=== PATIENT | male | born 1995 | race Two or more races ===

== ENCOUNTER 2019-10-08 18:26 | Emergency (ER) | payer SELFPAY ==
[~2019-10-08] VITALS: Ht 177.8 cm; Wt 73.0 kg
[2019-10-08 18:36] VITALS: BP 118/82
== END 2019-10-08 19:15 | disposition left against medical advice (07) ==
LOC: ER 18:26
DX: Z53.21 Procedure and treatment not carried out due to patient leaving prior to being seen by health care provider (principal)

== ENCOUNTER 2019-10-10 16:28 | Emergency (ER) | payer SELFPAY ==
[~2019-10-10] VITALS: Ht 177.8 cm; Wt 67.0 kg
[2019-10-10 16:32] VITALS: BP 134/90
== END 2019-10-10 18:03 | disposition left against medical advice (07) ==
LOC: ER 16:28
DX: Z53.21 Procedure and treatment not carried out due to patient leaving prior to being seen by health care provider (principal)

== ENCOUNTER 2019-10-11 18:50 | Emergency (ER) | payer SELFPAY ==
[~2019-10-11] VITALS: Ht 165.1 cm; Wt 64.0 kg
[2019-10-11] MEDS ORDERED: ONDANSETRON HCL 4MG/2ML INJ IV STA (23:18)
[2019-10-11] MEDS ORDERED: SODIUM CHLORIDE 0.9% 1,000 ML IV ONE (23:18)
[2019-10-11] MEDS ORDERED: LORAZEPAM 2MG/ML CPJ IV ONE (23:30)
[2019-10-12 01:09] LABS: CHLORIDE 107 mEq/L (98-107)
[2019-10-12 01:13] LABS: BASOPHILS % 0.7 % (0.0-2.0); EOSINOPHILS % 0.9 % (0.0-5.0); ETHANOL BLOOD 162 mg/dL; HEMOGLOBIN. 12.5 g/dL (14.0-18.0); LYMPHOCYTES % 31.3 % (20.0-50.0); MEAN CORPUSCULAR HEMOGLOBIN 28.2 pg (28.0-32.0); MEAN CORPUSCULAR VOLUME 83.6 fL (80.0-94.0); MONOCYTES % 6.4 % (2.0-8.0); NEUTROPHILS % 60.7 % (40.0-76.0); PLATELET 276 x1000/uL (130-400); RED BLOOD CELL COUNT 4.43 mill/uL (4.7-6.1); RED CELL DISTRIBUTION WIDTH 13.5 % (11.6-14.6)
[2019-10-12 10:00] VITALS: BP 114/62
== END 2019-10-12 12:06 | disposition home or self-care (01) ==
LOC: ER 18:50
DX: T51.91XA Toxic effect of unspecified alcohol, accidental (unintentional), initial encounter (principal); S16.1XXA Strain of muscle, fascia and tendon at neck level, initial encounter; S00.83XA Contusion of other part of head, initial encounter; F10.10 Alcohol abuse, uncomplicated; R00.0 Tachycardia, unspecified; R23.2 Flushing; R06.02 Shortness of breath; F14.10 Cocaine abuse, uncomplicated; Y08.89XA Assault by other specified means, initial encounter; Y93.89 Activity, other specified; Y92.89 Other specified places as the place of occurrence of the external cause; Y99.8 Other external cause status; Y90.6 Blood alcohol level of 120-199 mg/100 ml
CPT/HCPCS: 36415; 70450; 72040; 80053; 80320; 83690; 84484; 85025; 93005; 96374; 96375; 99284; J2060; J2405; J7030; G0480

== ENCOUNTER 2020-04-08 22:45 | Emergency (ER) | payer OTHER ==
[~2020-04-08] VITALS: Ht 180.3 cm; Wt 72.0 kg
[2020-04-08] MEDS ORDERED: KETOROLAC 60MG/2ML VIAL IM ONE (23:30)
[2020-04-08] MEDS ORDERED: IBUPROFEN 600MG TABLET PO ONE (23:45)
[2020-04-08 23:58] VITALS: BP 130/90
== END 2020-04-09 01:39 | disposition home or self-care (01) ==
LOC: ER 22:45
DX: M25.571 Pain in right ankle and joints of right foot (principal); F14.10 Cocaine abuse, uncomplicated
CPT/HCPCS: 73610; 99283; Z7610; J1885